=== PATIENT | female | born 1950 | race Caucasian/White ===

== ENCOUNTER → 2017-10-18 | Outpatient (REF) | payer MEDICARE, OTHER, SELFPAY | LOC: LAB 18:22 | PROVIDERS: PCP Internal Medicine; Visit Provider Internal Medicine | DX: R03.0 Elevated blood-pressure reading, without diagnosis of hypertension (principal); Z13.220 Encounter for screening for lipoid disorders | CPT/HCPCS: 80048; 80061 ==

== ENCOUNTER → 2018-10-24 10:30 | Outpatient (CLI) | payer MEDICARE, SELFPAY ==
--- NOTE | 2018-10-24 | DI.CT.S_ITS ---
PROCEDURE: CT ABDOMEN PELVIS WO/W CON INDICATIONS: PAINLESS, GROSS HEMATURIA TECHNIQUE: Optional 5 mm thick noncontrast images acquired from the diaphragm to the symphysis pubis. After the administration of intravenous contrast, 5 mm thick images acquired from the diaphragm to the symphysis pubis after a 10-minute delay. 2 mm thick coronal and sagittal reformats were then performed of the kidneys and ureters. For radiation dose reduction, the following was used: automated exposure control, adjustment of mA and/or kV according to patient size. COMPARISON: [facility], , PELVIC COMPLETE, 04/15/2008, 8:30. FINDINGS: Image quality: Excellent. Lung bases: Lung bases are clear. Heart size is normal. There is a small hiatal hernia. Urinary system: There is an elongated calcification in the left renal pelvis near the ureteropelvic junction measuring 5 x 12 mm. A 1.6 cm diameter density calcified nodule is noted in the inferior pole of the left kidney. There is no definitive hydronephrosis. Suspect bilateral parapelvic renal cysts. Both kidneys are normal in size. No perinephric fat stranding. There is normal bilateral renal enhancement. Renal calyces appear normal in morphology when filled with contrast. Opacified portions of both ureters demonstrate normal caliber. Bladder wall thickness is normal. No calcified bladder stones. Other solid organs: Liver is normal in size and enhancement. Small low density nodules in the liver are most likely cysts. Gallbladder is normal. Biliary system is non dilated. Pancreas enhances normally. Spleen is normal in size and enhancement. No adrenal nodules. Peritoneum and bowel: Bowel loops demonstrate normal wall thickness and caliber. Appendix is normal. No free fluid or air. Nodes and vessels: No retroperitoneal or mesenteric adenopathy by size criteria. Aorta and inferior vena cava are normal in size. Abdominal wall: No ventral hernias. Pelvis: Uterus is normal in size. There is a 1.4 cm enhancing nodule in the right uterine wall, likely a uterine fibroid. Cervix is prominent. No pathologic free pelvic fluid. No inguinal hernias or adenopathy. Bones: No suspicious bony lesions. No vertebral body compression fractures. IMPRESSION: 1. A 5 x 12 mm calcification is present in the left hilum near the uteropelvic junction, suspicious for a stone. There is no left hydronephrosis. 2. Bilateral parapelvic cysts. 3. A densely calcified nodule in the inferior pole of the left kidney. 4. A 1.4 cm fibroid arising from the right uterine wall. 5. Probably small hepatic cysts. Dictated by: Malia Peralta M.D. on 10/24/2018 at 15:44 Approved by: Malia Peralta M.D. on 10/24/2018 at 17:52
== END ==
PROVIDERS: PCP Internal Medicine; Visit Provider Internal Medicine
DX: R31.0 Gross hematuria (principal); N94.89 Other specified conditions associated with female genital organs and menstrual cycle; N28.9 Disorder of kidney and ureter, unspecified; D25.9 Leiomyoma of uterus, unspecified
CPT/HCPCS: 74178; Q9967

== ENCOUNTER → 2019-01-15 09:32 | Outpatient (CLI) | payer MEDICARE, SELFPAY ==
[2019-01-15 10:48] LABS: Estimated Glomerular Filt Rate > 60.0 mL/min (>60)
== END ==
PROVIDERS: PCP Internal Medicine; Visit Provider Student in an Organized Health Care Education/Training Program
DX: N28.89 Other specified disorders of kidney and ureter (principal)
CPT/HCPCS: 36415; 82565